=== PATIENT | female | born 1950 | race Caucasian/White ===

== ENCOUNTER → 2017-01-04 | Outpatient (CLI) | payer OTHER, BC ==
[~2017-01-04] MED LIST: ADULT LOW DOSE81 MG; CO Q-10400 MG; DIOVAN; FISHOIL; METOCLOPRAMIDE10 MG; MULTIVITAMINS; NORVASC 2.5 MG2.5 MG; PLAVIX 75 MG TA75 MG; TRICOR145 MG; VITAMINC500; VYTORIN 10-401 EACH; [UNRECOGNIZED DRUG - OTHER]; calcium
== END ==
LOC: CAT 12:00
DX: J32.0 Chronic maxillary sinusitis (principal); R06.1 Stridor; R06.2 Wheezing